=== PATIENT | female | born 1945 | race Caucasian/White ===

== ENCOUNTER 2018-03-01 09:04 | Observation (INO) | payer OTHER, SELFPAY | END 2018-03-01 11:49 | disposition home or self-care (01) | PROVIDERS: Admitting Provider Orthopaedic Surgery; Family Provider Family Medicine; PCP Family Medicine; Visit Provider Orthopaedic Surgery | DX: Z53.09 Procedure and treatment not carried out because of other contraindication (principal); M17.12 Unilateral primary osteoarthritis, left knee | CPT/HCPCS: 27447; G0378 ==